=== PATIENT | female | born 1995 | race Caucasian/White ===

== ENCOUNTER 2022-10-04 23:41 | Emergency (ER) | payer OTHER ==
[2022-10-04 23:48] VITALS: BP 130/81; PULSE 100; RESP 18; TEMP 97.7; BMI 24.0
[2022-10-05 01:30] LABS: HCG,QUALITATIVE URINE Positive
[2022-10-05 01:33] LABS: EPI CELLS 14 /uL (0-25.1); HYALINE CASTS 0 /uL (0-3.1); URINE APPEARANCE CLOUDY; URINE BACTERIA 511 /uL (0-1359); URINE BILIRUBIN NEGATIVE (NEGATIVE); URINE COLOR YELLOW; URINE GLUCOSE (UA) NEGATIVE (NEGATIVE); URINE KETONE TRACE (NEGATIVE); URINE LEUK ESTERASE 2+ (NEGATIVE); URINE NITRITE NEGATIVE (NEGATIVE); URINE PROTEIN TRACE (NEGATIVE); URINE RBC 55 /uL (0-23.9); URINE UROBILINOGEN 0.2 mg/dL (0.2-1.0); URINE WBC 1859 /uL (0-25.8)
[2022-10-05] MEDS ORDERED: CEPHALEXIN MONOHYDRATE 500 MG CAPSULE (UD) PO ONE (01:40)
[2022-10-05] MEDS ORDERED: CEPHALEXIN MONOHYDRATE 500 MG CAPSULE (UD) ONE (02:27)
[2022-10-05 03:16] LABS: SYPHILIS W/ RPR CONF NON-REACTIVE (NONREACTIVE)
[2022-10-05 03:45] LABS: HIV INTERPRETATION NEGATIVE (NEGATIVE)
== END 2022-10-05 03:40 | disposition home or self-care (01) ==
LOC: JER 23:41
DX: O23.41 Unspecified infection of urinary tract in pregnancy, first trimester (principal); O26.891 Other specified pregnancy related conditions, first trimester; R10.2 Pelvic and perineal pain; O00.90 Unspecified ectopic pregnancy without intrauterine pregnancy; Z3A.01 Less than 8 weeks gestation of pregnancy
CPT/HCPCS: 36415; 76830-TC; 81003; 84702; 84703; 86780; 86850; 86900; 86901; 87086; 87389; 87491; 87591; 87661; 99284-25

== ENCOUNTER 2022-10-16 23:07 | Inpatient (IN) | payer OTHER ==
[2022-10-16 23:17] VITALS: BMI 24.0
[2022-10-17 01:28] LABS: BASO % 0.9 % (0-2.0); EOS % 6.8 % (0-4.5); HEMATOCRIT 38.1 % (32.4-45.2); HEMOGLOBIN 12.9 GM/dL (10.7-15.3); LYMPH % 35.6 % (8-40); MCH 29.9 pg (25.7-33.7); MCHC 33.8 g/dl (32.0-36.0); MEAN CELL VOLUME 88.3 fl (80-96); MEAN PLT VOLUME 9.5 fl (7.5-11.1); MONO % 10.3 % (3.8-10.2); NEUT % 46.4 % (42.8-82.8); PLATELET COUNT 314 10^3/uL (134-434); RBC 4.31 M/mm3 (3.60-5.2); RDW 13.6 % (11.6-15.6); WHITE BLOOD COUNT 8.6 K/mm3 (4.0-10.0)
[2022-10-17 01:44] LABS: EPI CELLS >36 /uL (0-25.1); HYALINE CASTS 1 /uL (0-3.1); PH,URINE 5.5 (5.0-8.0); URINE APPEARANCE CLEAR; URINE BACTERIA 224 /uL (0-1359); URINE BILIRUBIN NEGATIVE (NEGATIVE); URINE COLOR YELLOW; URINE GLUCOSE (UA) NEGATIVE (NEGATIVE); URINE KETONE NEGATIVE (NEGATIVE); URINE LEUK ESTERASE 1+ (NEGATIVE); URINE NITRITE NEGATIVE (NEGATIVE); URINE PROTEIN NEGATIVE (NEGATIVE); URINE RBC 15 /uL (0-23.9); URINE UROBILINOGEN 0.2 mg/dL (0.2-1.0); URINE WBC 32 /uL (0-25.8)
[2022-10-17 01:50] LABS: INR 1.05 (0.83-1.09); PROTHROMBIN TIME (PATIENT) 12.2 SEC (9.7-13.0)
[2022-10-17 01:53] LABS: ACTIVATED PTT 28.1 SECONDS (25.2-36.5)
[2022-10-17 02:04] LABS: HCG,QUALITATIVE URINE POSITIVE
[2022-10-17 02:31] LABS: CALCIUM 9.1 mg/dL (8.5-10.1)
[2022-10-17 02:32] LABS: ALBUMIN 3.4 g/dl (3.4-5.0); BLOOD UREA NITROGEN 8.3 mg/dL (7-18)
[2022-10-17 02:35] LABS: CREATININE 0.6 mg/dL (0.55-1.3)
[2022-10-17 02:36] LABS: BILIRUBIN,TOTAL 0.8 mg/dL (0.2-1); TOT PROT 7.4 g/dl (6.4-8.2)
[2022-10-17] MEDS ORDERED: ROCURONIUM BROMIDE 50 MG/5 ML SYRINGE ONE (05:01)
[2022-10-17] MEDS ORDERED: PROPOFOL 20 ML ONE (05:01)
[2022-10-17] MEDS ORDERED: MIDAZOLAM HCL 2 MG/2 ML SINGLE DOSE VIAL ONE (05:02)
[2022-10-17] MEDS ORDERED: ceFAZolin SODIUM 1 GM VIAL IVPB ONE (05:25)
[2022-10-17] MEDS ORDERED: NEOSTIGMINE METHYLSULFATE 0.5 MG/1 ML - 10 ML MDV ONE (05:39)
[2022-10-17] MEDS ORDERED: IBUPROFEN 800 MG/8 ML IJ IVPB PRN (06:11)
[2022-10-17] MEDS ORDERED: oxyCODONE HCL 5 MG TABLET PO PRN (06:11)
[2022-10-17] MEDS ORDERED: ONDANSETRON 4 MG/2 ML VIAL IVPUSH PRN ×2 (06:11→06:17)
[2022-10-17] MEDS ORDERED: ELECTROLYTE-148 SOLN 1,000 ML IV SCH (06:15)
[2022-10-17] MEDS: ACETAMINOPHEN 1000 MG/100 ML BAG IVPB ONE ×2 (06:28→06:34)
[2022-10-17] MEDS ORDERED: LACTATED RINGERS SOLUTION 1,000 ML IV SCH (06:30)
[2022-10-17] MEDS ORDERED: ACETAMINOPHEN INJECTION 100 ML IVPB ONE (06:33)
[2022-10-17 06:55] VITALS: RESP 16
[2022-10-17] MEDS: CEFAZOLIN 1 GM in DEXTROSE 5%-WATER - 50 ML IVPB SCH ×2 (10:04→17:32)
[2022-10-17] MEDS: IBUPROFEN 600 MG TABLET (FP) PO PRN (16:19)
[2022-10-18] MEDS: CEFAZOLIN 1 GM in DEXTROSE 5%-WATER - 50 ML IVPB SCH (01:03)
[2022-10-18] MEDS: IBUPROFEN 600 MG TABLET (FP) PO PRN (05:09)
[2022-10-18 09:40] VITALS: BP 99/63; PULSE 79; TEMP 97.9
[2022-10-18 09:40] LABS: HEMATOCRIT 31.7 % (32.4-45.2); HEMOGLOBIN 11.2 GM/dL (10.7-15.3); MCH 31.5 pg (25.7-33.7); MCHC 35.4 g/dl (32.0-36.0); MEAN CELL VOLUME 89.1 fl (80-96); MEAN PLT VOLUME 9.7 fl (7.5-11.1); PLATELET COUNT 267 10^3/uL (134-434); RBC 3.56 M/mm3 (3.60-5.2); RDW 13.3 % (11.6-15.6)
== END 2022-10-18 13:09 | disposition home or self-care (01) | DRG 819 ==
LOC: JER 23:07 → JASUSAT 10-17 03:55 → JERBED 10-17 06:11 → J3W 10-17 06:51
PROVIDERS: ADMIT Obstetrics & Gynecology; ATTEND Obstetrics & Gynecology
PROC: 0UT50ZZ Resection of Right Fallopian Tube, Open Approach (ICD-10-PCS; 2022-10-17)
PROC: 10T20ZZ Resection of Products of Conception, Ectopic, Open Approach (ICD-10-PCS; principal; 2022-10-17 05:01)
DX: O00.101 Right tubal pregnancy without intrauterine pregnancy (principal); Z3A.01 Less than 8 weeks gestation of pregnancy
CPT/HCPCS: 0241U-QW; 36415; 76817-TC; 80053; 81003; 84702; 84703; 85025; 85027; 85610; 85730; 86850; 86900; 86901; 87086; 87186; 88305-TC; 93005; 93010; 94760

== ENCOUNTER 2023-09-16 10:09 | Inpatient (IN) | payer OTHER ==
[2023-09-16 11:20] LABS: BASO % 0.7 % (0-2.0); EOS % 3.5 % (0-4.5); HEMATOCRIT 35.9 % (32.4-45.2); HEMOGLOBIN 12.7 GM/dL (10.7-15.3); LYMPH % 26.2 % (8-40); MCH 31.6 pg (25.7-33.7); MCHC 35.3 g/dl (32.0-36.0); MEAN CELL VOLUME 89.5 fl (80-96); MONO % 7.1 % (3.8-10.2); NEUT % 62.5 % (42.8-82.8); PLATELET COUNT 181 10^3/uL (134-434); RBC 4.01 M/mm3 (3.60-5.2); RDW 14.7 % (11.6-15.6); WHITE BLOOD COUNT 9.9 K/mm3 (4.0-10.0)
[2023-09-16] MEDS: ELECTROLYTE-148 SOLN 1,000 ML IV SCH (11:30)
[2023-09-16 11:32] VITALS: BMI 29.2
[2023-09-16 11:40] LABS: INR 0.99 (0.83-1.09); PROTHROMBIN TIME (PATIENT) 11.5 SEC (9.7-13.0)
[2023-09-16 11:42] LABS: POTASSIUM 3.9 mmol/L (3.5-5.1)
[2023-09-16 11:43] LABS: CALCIUM 8.8 mg/dL (8.5-10.1)
[2023-09-16 11:45] LABS: BLOOD UREA NITROGEN 7.9 mg/dL (7-18)
[2023-09-16 11:47] LABS: CREATININE 0.7 mg/dL (0.55-1.3)
[2023-09-16] MEDS ORDERED: OXYTOCIN 30 UNITS in 0.9% NS 30 UNIT/500 ML INFUS.BAG IVPB ONE (11:50)
[2023-09-16] MEDS: OXYTOCIN 30 UNITS in 0.9% NS 30 UNIT/500 ML INFUS.BAG IVPB SCH (11:54)
[2023-09-16 12:25] LABS: PLATELET ESTIMATE ADEQUATE
[2023-09-16 12:38] LABS: HIV INTERPRETATION NEGATIVE (NEGATIVE)
[2023-09-16] MEDS ORDERED: LIDOCAINE HCL 1% PRESERVATIVE FREE - 30ML VIAL ONE (15:08)
[2023-09-16] MEDS ORDERED: OXYTOCIN 20 UNITS in 0.9% NS 20 UNIT/1,000 ML INFUS.BAG IV ONE (15:09)
[2023-09-16] MEDS ORDERED: oxyCODONE HCL 5 MG TABLET PO PRN (15:31)
[2023-09-16] MEDS ORDERED: BENZOCAINE 20% 57 GM BOTTLE TP PRN (15:31)
[2023-09-16] MEDS ORDERED: BISACODYL 10 MG SUPP.RECT RC PRN (15:31)
[2023-09-16] MEDS ORDERED: ACETAMINOPHEN 325 MG TABLET (FP) PO PRN (15:31)
[2023-09-16] MEDS ORDERED: METHYLERGONOVINE MALEATE 0.2 MG/1 ML AMP IM PRN (15:31)
[2023-09-16] MEDS ORDERED: BENZOCAINE 28 GM HEMORRHOIDAL OINTMENT TP PRN (15:31)
[2023-09-16] MEDS ORDERED: WITCH HAZEL 50% (TUCKS) 40 PAD/JAR PAD TP PRN (15:31)
[2023-09-16] MEDS: OXYTOCIN 20 UNITS in 0.9% NS 20 UNIT/1,000 ML INFUS.BAG IV SCH (15:40)
[2023-09-16] MEDS: IBUPROFEN 600 MG TABLET (FP) PO PRN (15:41)
[2023-09-16 16:11] LABS: CORD BASE EXCESS -0.4 mmol/L (0-2); CORD HCO3 23.8 mmHg (20-29); CORD PCO2 38.2 mmHg (30-78); CORD pH 7.413 (7.14-7.44)
[2023-09-16 16:24] LABS: CORD BASE EXCESS -1.9 mmol/L (0-2); CORD HCO3 21.3 mmHg (20-29); CORD PCO2 32.6 mmHg (30-78); CORD pH 7.433 (7.14-7.44)
[2023-09-17 08:13] LABS: BASO % 0.3 % (0-2.0); EOS % 1.5 % (0-4.5); HEMATOCRIT 34.3 % (32.4-45.2); HEMOGLOBIN 12.1 GM/dL (10.7-15.3); LYMPH % 18.6 % (8-40); MCH 31.6 pg (25.7-33.7); MCHC 35.3 g/dl (32.0-36.0); MEAN CELL VOLUME 89.6 fl (80-96); MEAN PLT VOLUME 11.1 fl (7.5-11.1); MONO % 8.2 % (3.8-10.2); NEUT % 71.4 % (42.8-82.8); PLATELET COUNT 168 10^3/uL (134-434); RBC 3.82 M/mm3 (3.60-5.2); RDW 15.1 % (11.6-15.6); WHITE BLOOD COUNT 13.1 K/mm3 (4.0-10.0)
[2023-09-17] MEDS ORDERED: SENNOSIDES/DOCUSATE COMBO (SENNA PLUS) TABLET (UD) PO PRN (22:00)
[2023-09-18 08:18] VITALS: RESP 16
[2023-09-18 08:19] VITALS: BP 109/68; PULSE 87; TEMP 98
== END 2023-09-18 13:12 | disposition home or self-care (01) | DRG 807 ==
LOC: JLDR 10:09 → J3W 17:15
PROVIDERS: ADMIT Obstetrics & Gynecology; ATTEND Obstetrics & Gynecology
PROC: 10E0XZZ Delivery of Products of Conception, External Approach (ICD-10-PCS; principal; 2023-09-16)
PROC: 0HQ9XZZ Repair Perineum Skin, External Approach (ICD-10-PCS; 2023-09-16)
DX: O70.0 First degree perineal laceration during delivery (principal); Z37.0 Single live birth; O69.81X0 Labor and delivery complicated by cord around neck, without compression, not applicable or unspecified; Z3A.38 38 weeks gestation of pregnancy
CPT/HCPCS: 36415; 36600; 80048; 82803; 85025; 85610; 85730; 86780; 86850; 86900; 86901; 87389